=== PATIENT | male | born 1940 | race Caucasian/White ===

== ENCOUNTER 2020-01-22 06:18 | Emergency (ER) | payer MEDICARE, BC ==
[~2020-01-22] VITALS: Ht 165.1 cm; Wt 52.3 kg
[~2020-01-22 06:18] MED LIST: CENTRUM1 TAB PO
[2020-01-22 06:24] VITALS: TEMP 98.2
[2020-01-22 06:53] LABS: BASO % 0.4 % (0.0-2.0); EOS # 0.1 (0.0-0.7); EOS % 0.9 % (0-4.0); GRAN % 74.8 % (42.2-75.2); HEMATOCRIT 48.9 % (42.0-52.0); HEMOGLOBIN 16.5 g/dl (13.5-18.0); LYMPH # 1.3 (1.2-3.4); LYMPH % 12.3 % (20.0-51.0); MEAN CELL VOLUME 94 fl (80.0-100.0); MEAN CORPUSCULAR HEMOGLOBIN 32 pg (27.0-31.0); MEAN CORPUSCULAR HGB CONC 34 g/dl (33.0-37.0); MONO # 1.2 (0.1-0.6); MONO % 11.3 % (1.7-9.3); PLATELET COUNT 232 K/mm3 (130-400); RED BLOOD COUNT 5.23 M/mm3 (4.20-5.60); REDCELL DISTRIBUTION WIDTH-CV 12.8 % (11.5-14.5)
[2020-01-22 06:58] LABS: INR 0.9 (0.8-3.0); PROTHROMBIN TIME 10.6 SECONDS (9.7-12.8)
[2020-01-22] MEDS ORDERED: ATIVAN 0.50.5 MG/TAB PO (07:00)
[2020-01-22] MEDS ORDERED: ZOFRAN ODT4 MG PO (07:00)
[2020-01-22] MEDS ORDERED: COLESTID 1GM1 G PO (07:01)
[2020-01-22 07:05] LABS: ALBUMIN 4.3 gm/dL (3.5-5.0); BILIRUBIN,TOTAL 0.4 mg/dL (0.0-1.0); CALCIUM 9.3 mg/dL (8.4-10.2); CREATININE, serum 0.83 (0.66-1.25); POTASSIUM 4.2 mmol/L (3.4-5.0); TOTAL PROTEIN 7.3 gm/dL (6.4-8.2)
[2020-01-22 07:26] LABS: TROPONIN-I 4.35 ng/mL (0.000-0.035)
[2020-01-22 09:27] VITALS: BP 118/74; PULSE 90
== END 2020-01-22 09:30 | disposition short-term general hospital (02) ==
LOC: COL.ER 06:18
PROVIDERS: Emergency Medicine
DX: I21.4 Non-ST elevation (NSTEMI) myocardial infarction (principal); E78.5 Hyperlipidemia, unspecified; K21.9 Gastro-esophageal reflux disease without esophagitis; F17.210 Nicotine dependence, cigarettes, uncomplicated; Z90.49 Acquired absence of other specified parts of digestive tract; Z98.890 Other specified postprocedural states
CPT/HCPCS: C9113; J1644; J2270; J2405; J3010; J7030; Q9967